=== PATIENT | male | born 1980 | race Caucasian/White ===

== ENCOUNTER 2017-03-31 21:10 | Inpatient (IN) | payer MEDICARE, MEDICAID ==
[~2017-03-31] VITALS: Ht 190.5 cm; Wt 87.1 kg
[2017-03-31] MEDS ORDERED: LORazepam 2 MG TABLET PO PRN (21:30)
[2017-03-31] MEDS ORDERED: HALOPERIDOL 5 MG TABLET PO PRN (21:30)
[2017-03-31 21:42] VITALS: BP 98/61
[2017-03-31 22:00] LABS: APPEARANCE,URINE CLEAR (CLEAR); GLUCOSE, URINE (UA) NEGATIVE (NEGATIVE); KETONES,URINE NEGATIVE (NEGATIVE); LEUKOCYTE ESTERASE ,URINE NEGATIVE (NEGATIVE); OCCULT BLOOD,URINE NEGATIVE (NEGATIVE); PH,URINE 5.5 (5.0-8.0); PROTEIN,URINE NEGATIVE (NEGATIVE)
[2017-03-31 22:03] LABS: ADD UA MICROSCOPIC NO
[2017-04-01] MEDS ORDERED: PNEUMOCOCCAL VACCINE POLYVALENT 0.5 ML VIAL [PPSV23] IM ONE (06:45)
[2017-04-01 06:54] LABS: BASOPHILS # (AUTO) 0.02 K/uL (0.00-0.20); BASOPHILS % (AUTO) 0.4 % (0.0-2.0); EOSINOPHILS # (AUTO) 0.24 K/uL (0.00-0.70); EOSINOPHILS % (AUTO) 4.16 % (1.0-6.0); HEMATOCRIT 41.7 % (41-53); LYMPHOCYTES % (AUTO) 34.3 % (22.0-44.0); MEAN CORPUSCULAR HEMOGLOBIN 33.8 pg (26.0-34.0); MEAN CORPUSCULAR HGB CONC 33.5 G/dL (31.0-37.0); MEAN CORPUSCULAR VOLUME 101 fL (80-100); MONOCYTES # (AUTO) 0.6 K/uL (0.1-1.0); MONOCYTES % (AUTO) 9.5 % (2.0-9.0); NEUTROPHILS % (AUTO) 51.7 % (40.0-70.0); PLATELET COUNT (AUTO) 147 K/uL (150-450); RED BLOOD CELL COUNT(AUTO) 4.13 MIL/uL (4.50-5.90); RED CELL DISTRIBUTION WIDTH 13.2 % (11.5-14.5); WHITE BLOOD COUNT (AUTO) 5.9 K/uL (4.5-11.0)
[2017-04-01 07:45] LABS: HEMOGLOBIN A1C 5.5 % (4.5-6.2)
[2017-04-01 07:49] LABS: ALANINE AMINOTRANSFERASE 29 U/L (12-78); ALBUMIN 3.9 g/dL (3.4-5.0); ANION GAP 6 mmol/L (8-16); ASPARTATE AMINOTRANSFERASE 14 U/L (15-37); BILIRUBIN,TOTAL 0.2 mg/dL (0.1-1.0); CALCIUM, TOTAL 8.9 mg/dL (8.8-10.5); CARBON DIOXIDE 30 mmol/L (22-29); CHLORIDE 103 mmol/L (98-107); CHOL/HDL RATIO 3.7 (4.2-7.3); CREATINE KINASE MB 0.7 ng/mL (0-5); CREATINE KINASE, TOTAL 83 U/L (39-308); CREATININE 1.21 mg/dL (0.60-1.30); GLOMERULAR FILTR. RATE CALC > 60 mL/min (>60); POTASSIUM 4.5 mmol/L (3.5-5.1); SODIUM SERUM 139 mmol/L (136-145); THYROID STIMULATING HORMONE 2.81 uIU/mL (0.36-3.74); TOTAL PROTEIN, SERUM 6.9 g/dL (6.4-8.2); UREA NITROGEN, BLOOD 18 mg/dL (7-18)
[2017-04-01 08:34] LABS: RBC MORPHOLOGY COMMENT ABNORMAL RBC MORPH
[2017-04-01 08:37] VITALS: BP 125/72
[2017-04-01] MEDS ORDERED: LISINOPRIL 5 MG TABLET PO SCH (09:00)
[2017-04-01] MEDS: DOLUTEGRAVIR SODIUM 50 MG TABLET PO SCH (11:22)
[2017-04-01] MEDS: ABACAVIR SULFATE 300 MG TABLET PO SCH (11:22)
[2017-04-01] MEDS: LevETIRAcetam 500 MG TABLET PO SCH ×2 (11:22→20:12)
[2017-04-01] MEDS: CLOPIDOGREL BISULFATE 75 MG TABLET PO SCH (11:22)
[2017-04-01] MEDS: ASPIRIN 325 MG TABLET PO SCH (11:23)
[2017-04-01 16:00] VITALS: BP 127/61
[2017-04-01] MEDS: RisperiDONE 1 MG TABLET PO SCH (20:12)
[2017-04-02 06:06] LABS: LYMPHS % FOR CD4 COUNT 34 %; LYMPHS ABS FOR CD4 COUNT 1.9 x10E3/uL (0.7-3.1); WBC FOR CD4 COUNT 5.6 x10E3/uL (3.4-10.8)
[2017-04-02 08:20] VITALS: BP 113/67
[2017-04-02] MEDS: ASPIRIN 325 MG TABLET PO SCH (08:53)
[2017-04-02] MEDS: CLOPIDOGREL BISULFATE 75 MG TABLET PO SCH (08:54)
[2017-04-02] MEDS: DOLUTEGRAVIR SODIUM 50 MG TABLET PO SCH (08:54)
[2017-04-02] MEDS: LevETIRAcetam 500 MG TABLET PO SCH ×2 (08:54→20:20)
[2017-04-02] MEDS: RisperiDONE 1 MG TABLET PO SCH ×2 (08:54→20:21)
[2017-04-02] MEDS: ABACAVIR SULFATE 300 MG TABLET PO SCH (08:54)
[2017-04-02] MEDS: LISINOPRIL 5 MG TABLET PO SCH (08:55)
[2017-04-02 15:59] LABS: ABSOLUTE CD4 COUNT 958 /uL (359-1519); HEPATITIS Bs ANTIGEN SCREEN P Negative (Negative); HEPATITIS C AB SCREEN <0.1 s/co ratio (0.0-0.9); PERCENT CD4 CELLS 50.4 % (30.8-58.5)
[2017-04-02 17:58] VITALS: BP 115/82
[2017-04-03] MEDS: ZOLPIDEM TARTRATE 10 MG TABLET PO PRN ×2 (02:14→21:14)
[2017-04-03 08:16] VITALS: BP 111/65
[2017-04-03] MEDS: ASPIRIN 325 MG TABLET PO SCH (08:20)
[2017-04-03] MEDS: DOLUTEGRAVIR SODIUM 50 MG TABLET PO SCH (08:20)
[2017-04-03] MEDS: ABACAVIR SULFATE 300 MG TABLET PO SCH (08:20)
[2017-04-03] MEDS: LevETIRAcetam 500 MG TABLET PO SCH ×2 (08:21→20:16)
[2017-04-03] MEDS: CLOPIDOGREL BISULFATE 75 MG TABLET PO SCH (08:21)
[2017-04-03] MEDS: RisperiDONE 1 MG TABLET PO SCH ×2 (08:21→20:16)
[2017-04-03] MEDS: LISINOPRIL 5 MG TABLET PO SCH (08:22)
[2017-04-03] MEDS: NICOTINE 21 MG/24 HOUR PATCH TD SCH (12:28)
[2017-04-03 16:04] VITALS: BP 126/66
[2017-04-04] MEDS: LevETIRAcetam 500 MG TABLET PO SCH ×2 (08:16→20:39)
[2017-04-04] MEDS: ABACAVIR SULFATE 300 MG TABLET PO SCH (08:16)
[2017-04-04] MEDS: RisperiDONE 1 MG TABLET PO SCH ×2 (08:16→20:39)
[2017-04-04] MEDS: CLOPIDOGREL BISULFATE 75 MG TABLET PO SCH (08:16)
[2017-04-04] MEDS: ASPIRIN 325 MG TABLET PO SCH (08:17)
[2017-04-04] MEDS: DOLUTEGRAVIR SODIUM 50 MG TABLET PO SCH (08:17)
[2017-04-04] MEDS: LISINOPRIL 5 MG TABLET PO SCH (08:17)
[2017-04-04] MEDS: NICOTINE 21 MG/24 HOUR PATCH TD SCH (08:27)
[2017-04-04 08:42] VITALS: BP 120/80
[2017-04-04 16:52] VITALS: BP 123/84
[2017-04-04] MEDS: ZOLPIDEM TARTRATE 10 MG TABLET PO PRN (23:01)
[2017-04-05 08:03] VITALS: BP 111/73
[2017-04-05] MEDS: LevETIRAcetam 500 MG TABLET PO SCH (08:13)
[2017-04-05] MEDS: CLOPIDOGREL BISULFATE 75 MG TABLET PO SCH (08:13)
[2017-04-05] MEDS: ASPIRIN 325 MG TABLET PO SCH (08:13)
[2017-04-05] MEDS: LISINOPRIL 5 MG TABLET PO SCH (08:15)
[2017-04-05] MEDS: RisperiDONE 1 MG TABLET PO SCH (08:15)
[2017-04-05] MEDS: DOLUTEGRAVIR SODIUM 50 MG TABLET PO SCH (08:15)
[2017-04-05] MEDS: ABACAVIR SULFATE 300 MG TABLET PO SCH (08:16)
[2017-04-05] MEDS: NICOTINE 21 MG/24 HOUR PATCH TD SCH (08:19)
[2017-04-05 10:20] LABS: HIV CONFIRM? YES (NP)
[2017-04-05] MEDS ORDERED: RISP1 PO (11:37)
[2017-04-05] MEDS ORDERED: ASA3 PO (11:39)
[2017-04-05] MEDS ORDERED: LISI-660 PO (11:39)
[2017-04-05] MEDS ORDERED: CLOP75 PO (11:40)
[2017-04-05] MEDS ORDERED: LEVE500T19 PO (11:41)
[2017-04-05] MEDS ORDERED: ABAC300T8 PO (11:42)
[2017-04-05] MEDS ORDERED: DOLU50TA PO (11:43)
[2017-04-05] MEDS ORDERED: EPIV100 PO (11:43)
== END 2017-04-05 14:05 | disposition home or self-care (01) | DRG 885 ==
LOC: 3EC 21:11
DX: F20.0 Paranoid schizophrenia (principal); I38 Endocarditis, valve unspecified; F15.90 Other stimulant use, unspecified, uncomplicated; G40.909 Epilepsy, unspecified, not intractable, without status epilepticus; G93.89 Other specified disorders of brain; D64.9 Anemia, unspecified; I10 Essential (primary) hypertension; F17.200 Nicotine dependence, unspecified, uncomplicated; F12.90 Cannabis use, unspecified, uncomplicated; I95.9 Hypotension, unspecified; D69.6 Thrombocytopenia, unspecified; Z88.8 Allergy status to other drugs, medicaments and biological substances; Z79.02 Long term (current) use of antithrombotics/antiplatelets; Z83.3 Family history of diabetes mellitus; Z95.2 Presence of prosthetic heart valve; Z81.8 Family history of other mental and behavioral disorders; Z79.82 Long term (current) use of aspirin; Z86.61 Personal history of infections of the central nervous system; Z71.51 Drug abuse counseling and surveillance of drug abuser; Z28.21 Immunization not carried out because of patient refusal; Z79.899 Other long term (current) drug therapy; Z20.6 Contact with and (suspected) exposure to human immunodeficiency virus [HIV]
CPT/HCPCS: 80074; 80307; 82306; 82607; 82746; 83036; 83735; 84439; 84443; 86361; 86592; 86701; 86702; 87081; 87389